=== PATIENT | female | born 1950 | race Caucasian/White ===

== ENCOUNTER → 2016-09-22 | Outpatient (CLI) | payer MEDICARE ==
[~2016-09-22] MED LIST: CALC-72 PO; CELE100C PO; CHOL2000 PO; CYCL10TA50 PO; ESTR1TAB37; LISI5TAB7 PO; MULT-34 PO; OMEG1CAP12 PO; SIMV10TA3 PO; UNKNOWN THYROID MED
== END | disposition home or self-care (01) ==
LOC: CFH 09:41
PROVIDERS: ATTEND Physician Assistant
DX: Z12.31 Encounter for screening mammogram for malignant neoplasm of breast (principal); M85.80 Other specified disorders of bone density and structure, unspecified site; E04.2 Nontoxic multinodular goiter; M81.0 Age-related osteoporosis without current pathological fracture
CPT/HCPCS: 76536; 77080; G0202

== ENCOUNTER → 2016-10-12 | Outpatient (CLI) | payer MEDICARE ==
[2016-10-12 08:56] LABS: ASPARTATE AMINO TRANSFERASE 12 U/L (15-37); BLOOD UREA NITROGEN 12 mg/dL (7-18)
== END | disposition home or self-care (01) ==
LOC: STAR 07:28
PROVIDERS: ATTEND Surgery
DX: Z01.818 Encounter for other preprocedural examination (principal)
CPT/HCPCS: 36415; 71020; 80053; 93005

== ENCOUNTER 2016-10-26 06:57 | Inpatient (IN) | payer MEDICARE ==
[2016-10-14 14:36] VITALS: BP 158/92
[~2016-10-26] VITALS: Ht 165.1 cm; Wt 68.9 kg
[~2016-10-26 06:57] MED LIST changes: +ASPI-496 PO; +ATOR10TA9 PO; +BUPIVACAINE/PF-EPI 0.5% 1:200K ONE; +LACT1CAP40 PO; +MAGN500C PO; +METH5TAB6 PO; +MULT-230 PO; -OMEG1CAP12 PO; +OMEG1CAP23 PO; +OMEP-110 PO; +TURM1CAP PO
[2016-10-26] MEDS ORDERED: LACTATED RINGERS 1,000 ML IV SCH (07:24)
[2016-10-26] MEDS ORDERED: LISI-170 PO (07:30)
[2016-10-26] MEDS ORDERED: LIDOCAINE 1%, 2ML SQ PRN (07:30)
[2016-10-26] MEDS ORDERED: FENTANYL PF 250 MCG/5ML ONE (09:25)
[2016-10-26] MEDS ORDERED: MIDAZOLAM 1 MG/ML, 2ML ONE (09:26)
[2016-10-26] MEDS ORDERED: DEXAMETHASONE 4 MG/ML, 1ML ONE (09:40)
[2016-10-26] MEDS ORDERED: LIDOCAINE 2%, 20ML ONE (09:40)
[2016-10-26] MEDS ORDERED: PHENYLEPHRINE 10 MG/ML ONE (09:40)
[2016-10-26] MEDS ORDERED: SUCCINYLCHOLINE 20 MG/ML, 10ML ONE (09:40)
[2016-10-26] MEDS ORDERED: CEFAZOLIN 1,000 MG ONE (09:40)
[2016-10-26] MEDS ORDERED: METOCLOPRAMIDE 5 MG/ML, 2ML ONE (09:40)
[2016-10-26] MEDS ORDERED: PROPOFOL 10 MG/ML, 20ML ONE (09:40)
[2016-10-26] MEDS ORDERED: ONDANSETRON 2MG/ML, 2ML ONE (09:40)
[2016-10-26] MEDS ORDERED: EPHEDRINE 50 MG/ML, 1ML IVPush PRN (10:00)
[2016-10-26] MEDS ORDERED: hydrALAzine 20 MG/ML, 1ML IV PRN ×2 (10:00→13:00)
[2016-10-26] MEDS ORDERED: OXYcodone 5 MG/5 ML ORAL.SOL UDC PO PRN (10:00)
[2016-10-26] MEDS ORDERED: HYDROmorphone 1 MG/ML, 1ML IV PRN (10:00)
[2016-10-26] MEDS ORDERED: ONDANSETRON 2MG/ML, 2ML IVPush PRN (10:00)
[2016-10-26] MEDS ORDERED: MEPERIDINE/PF 25MG/0.5ML IVPush PRN (10:00)
[2016-10-26] MEDS ORDERED: MIDAZOLAM 1 MG/ML, 2ML IV PRN (10:00)
[2016-10-26] MEDS ORDERED: METOCLOPRAMIDE 5 MG/ML, 2ML IV PRN (10:00)
[2016-10-26] MEDS ORDERED: LABETALOL 5MG/ML, 20ML IV PRN (10:00)
[2016-10-26] MEDS ORDERED: ALBUTEROL SULFATE 2.5 MG/3 ML NPPB PRN (10:00)
[2016-10-26] MEDS ORDERED: OXYcodone 5 MG/5 ML ORAL.SOL UDC ONE (11:17)
[2016-10-26 11:30] VITALS: BP 161/92
[2016-10-26] MEDS ORDERED: FENTANYL PF 100 MCG/2ML ONE (11:36)
[2016-10-26] MEDS: FENTANYL PF 100 MCG/2ML IV PRN ×2 (11:40→11:49)
[2016-10-26] MEDS ORDERED: ACETAMINOPHEN 650 MG SUPP PR PRN (13:00)
[2016-10-26 13:06] VITALS: BP 164/89
[2016-10-26] MEDS: D5%-0.45NACL+KCL 20MEQ 1,000 ML IV SCH ×2 (14:32→23:00)
[2016-10-26] MEDS ORDERED: CYCLOBENZAPRINE 10 MG TABLET PO PRN (15:30)
[2016-10-26] MEDS: KETOROLAC 30 MG/1 ML IV PRN ×2 (16:13→22:17)
[2016-10-26] MEDS: CALCIUM/VITAMIN D3 250-125 TABLET PO SCH ×2 (16:13→21:23)
[2016-10-26 19:30] VITALS: BP 127/65
[2016-10-26] MEDS: ACETAMINOPHEN 325 MG TABLET PO PRN (21:22)
[2016-10-27 00:02] VITALS: BP 138/68
[2016-10-27 03:42] VITALS: BP 135/68
[2016-10-27] MEDS: ACETAMINOPHEN 325 MG TABLET PO PRN (03:54)
[2016-10-27] MEDS: KETOROLAC 30 MG/1 ML IV PRN (04:57)
[2016-10-27] MEDS ORDERED: LEVOTHYROXINE 100 MCG TABLET PO SCH (06:00)
[2016-10-27 07:25] VITALS: BP 114/57
[2016-10-27] MEDS ORDERED: MULTIVITAMIN 1 TABLET PO SCH (09:00)
[2016-10-27] MEDS ORDERED: MAGNESIUM OXIDE 400 MG TABLET PO SCH (09:00)
[2016-10-27] MEDS ORDERED: CHOLECALCIFEROL 1,000 UNIT TABLET PO SCH (09:00)
[2016-10-27] MEDS ORDERED: LISINOPRIL 20 MG TABLET PO SCH (09:00)
[2016-10-27] MEDS: CALCIUM/VITAMIN D3 250-125 TABLET PO SCH (09:02)
[2016-10-27] MEDS ORDERED: CALC0.5C PO (09:12)
[2016-10-27] MEDS ORDERED: HYDR-3240 PO (09:13)
[2016-10-27] MEDS ORDERED: LEVO112T4 PO (09:14)
[2016-10-27] MEDS ORDERED: CALC-118 PO (09:15)
[2016-10-28] MEDS ORDERED: ATORVASTATIN 10 MG TABLET PO SCH (09:00)
== END 2016-10-27 10:13 | disposition home or self-care (01) | DRG 627 ==
LOC: OUT 06:57 → 4NOR 12:15 → OUT 12:25 → 4NOR 12:26 → DCLOUNGE 10-27 09:45
PROVIDERS: ADMIT Surgery; ATTEND Surgery
PROC: 0GTR0ZZ Resection of Parathyroid Gland, Open Approach (ICD-10-PCS; 2016-10-26)
PROC: 0GTM0ZZ Resection of Left Superior Parathyroid Gland, Open Approach (ICD-10-PCS; 2016-10-26)
PROC: 4A1004G Monitoring of Central Nervous Electrical Activity, Intraoperative, Open Approach (ICD-10-PCS; 2016-10-26)
PROC: 0GTK0ZZ Resection of Thyroid Gland, Open Approach (ICD-10-PCS; principal; 2016-10-26 09:30)
DX: E04.2 Nontoxic multinodular goiter (principal); I10 Essential (primary) hypertension; E78.00 Pure hypercholesterolemia, unspecified; M85.80 Other specified disorders of bone density and structure, unspecified site; J44.9 Chronic obstructive pulmonary disease, unspecified; G89.29 Other chronic pain; M54.9 Dorsalgia, unspecified; Z87.891 Personal history of nicotine dependence; Z85.51 Personal history of malignant neoplasm of bladder
CPT/HCPCS: 36415; 82310; 83970; 88305; 88307; 88331; J0690; J1100; J1885; J2250; J2405; J2704; J3010; J3490; C1760; J0330; J2370; J2765; J3480; J7120

== ENCOUNTER 2017-01-13 09:55 | Inpatient (IN) | payer MEDICARE ==
[~2017-01-13] VITALS: Ht 165.1 cm; Wt 69.0 kg
[~2017-01-13 09:55] MED LIST changes: -BUPIVACAINE/PF-EPI 0.5% 1:200K ONE; +CALC-118 PO; +CALC-534 PO; -CALC-72 PO; +CALC0.5C PO; +HYDR-3240 PO; +LEVO112T4 PO; +LISI-170 PO; -MAGN500C PO; +MAGN500C9 PO
[2017-01-13 10:53] LABS: HEMATOCRIT 39.6 % (34.6-47.8); HEMOGLOBIN 13.5 g/dL (11.7-16.4); WHITE BLOOD COUNT 9.1 x10^3/uL (3.4-10)
[2017-01-13] MEDS ORDERED: SODIUM CHLORIDE 0.9%, 500ML IVBOLUS ONE (11:00)
[2017-01-13 11:06] LABS: ASPARTATE AMINO TRANSFERASE 12 U/L (15-37); BLOOD UREA NITROGEN 48 mg/dL (7-18)
[2017-01-13 11:13] LABS: IS PT STATUS REG ER OR PRE ER? YES
[2017-01-13] MEDS ORDERED: SODIUM CHLORIDE 0.9% 1,000ML IVBOLUS ONE (11:30)
[2017-01-13] MEDS ORDERED: SODIUM CHLORIDE 0.9% 1,000 ML IV ONE (11:47)
[2017-01-13] MEDS ORDERED: SODIUM CHLORIDE FLUSH 10ML SYR IVF PRN (12:00)
[2017-01-13] MEDS ORDERED: HYDROcodone/APAP 5/325 TABLET PO PRN (13:30)
[2017-01-13 13:54] VITALS: BP 168/67
[2017-01-13] MEDS ORDERED: ENOXAPARIN 40 MG/0.4 ML SQ SCH (15:00)
[2017-01-13] MEDS ORDERED: PLEASE ENTER HEIGHT AND WEIGHT MC SCH (15:00)
[2017-01-13] MEDS ORDERED: SODIUM CHLORIDE 0.9% 1,000 ML IV SCH (15:30)
[2017-01-13] MEDS: HEPARIN 5,000 UNITS/ML, 1ML SQ SCH (17:48)
[2017-01-13 18:50] VITALS: BP 152/76
[2017-01-13] MEDS: SODIUM CHLORIDE 0.9% 1,000 ML IV SCH (20:24)
[2017-01-14 01:16] VITALS: BP 144/72
[2017-01-14] MEDS: SODIUM CHLORIDE 0.9% 1,000 ML IV SCH ×2 (03:11→08:20)
[2017-01-14] MEDS: LEVOTHYROXINE 112 MCG TABLET PO SCH (05:26)
[2017-01-14] MEDS: HEPARIN 5,000 UNITS/ML, 1ML SQ SCH ×3 (05:27→21:23)
[2017-01-14 06:33] LABS: HEMOGLOBIN 11.1 g/dL (11.7-16.4); WHITE BLOOD COUNT 7.3 x10^3/uL (3.4-10)
[2017-01-14 06:51] LABS: ASPARTATE AMINO TRANSFERASE 11 U/L (15-37); BLOOD UREA NITROGEN 47 mg/dL (7-18)
[2017-01-14 08:03] VITALS: BP 102/59
[2017-01-14] MEDS ORDERED: ACETAMINOPHEN 325 MG TABLET ONE (08:38)
[2017-01-14] MEDS: ACETAMINOPHEN 325 MG TABLET PO PRN ×2 (08:45→21:29)
[2017-01-14] MEDS: OMEPRAZOLE 20 MG CAPSULE.DR PO SCH (08:46)
[2017-01-14] MEDS ORDERED: METOPROLOL 1 MG/ML, 5ML IVPush PRN (11:30)
[2017-01-14] MEDS: SODIUM CHLORIDE 0.45% 1,000 ML IV SCH ×2 (13:30→23:13)
[2017-01-14 13:46] VITALS: BP 181/78
[2017-01-14 15:51] VITALS: BP 152/80
[2017-01-14] MEDS ORDERED: DOCUSATE 100 MG CAPSULE PO PRN (18:00)
[2017-01-14 19:56] VITALS: BP 195/70
[2017-01-15 00:42] VITALS: BP 160/75
[2017-01-15] MEDS: SODIUM CHLORIDE 0.45% 1,000 ML IV SCH (06:15)
[2017-01-15] MEDS: LEVOTHYROXINE 112 MCG TABLET PO SCH (06:15)
[2017-01-15] MEDS: HEPARIN 5,000 UNITS/ML, 1ML SQ SCH ×3 (06:15→21:55)
[2017-01-15 07:34] LABS: BLOOD UREA NITROGEN 38 mg/dL (7-18)
[2017-01-15 08:00] VITALS: BP 145/77
[2017-01-15] MEDS: OMEPRAZOLE 20 MG CAPSULE.DR PO SCH (08:46)
[2017-01-15] MEDS ORDERED: ATORVASTATIN 10 MG TABLET PO SCH ×2 (09:00→21:00)
[2017-01-15 13:46] VITALS: BP 176/91
[2017-01-15 20:08] VITALS: BP 195/80
[2017-01-15 20:45] VITALS: BP 177/82
[2017-01-15] MEDS: ACETAMINOPHEN 325 MG TABLET PO PRN (21:56)
[2017-01-15] MEDS ORDERED: LABETALOL 5MG/ML, 20ML IVPush PRN (23:30)
[2017-01-16 00:34] VITALS: BP 152/72
[2017-01-16 05:46] LABS: BLOOD UREA NITROGEN 35 mg/dL (7-18)
[2017-01-16] MEDS: LEVOTHYROXINE 112 MCG TABLET PO SCH (05:55)
[2017-01-16] MEDS: HEPARIN 5,000 UNITS/ML, 1ML SQ SCH (05:55)
[2017-01-16 07:39] VITALS: BP 152/74
[2017-01-16] MEDS: OMEPRAZOLE 20 MG CAPSULE.DR PO SCH (09:16)
[2017-01-16 11:00] VITALS: BP 145/86
== END 2017-01-16 12:18 | disposition home or self-care (01) | DRG 304 ==
LOC: ED 11:46 → EDIP 11:47 → ED 11:49 → 4WST 13:32
PROVIDERS: ADMIT Internal Medicine; ATTEND Internal Medicine
DX: I13.10 Hypertensive heart and chronic kidney disease without heart failure, with stage 1 through stage 4 chronic kidney disease, or unspecified chronic kidney disease (principal); N17.0 Acute kidney failure with tubular necrosis; E44.0 Moderate protein-calorie malnutrition; J98.11 Atelectasis; E83.52 Hypercalcemia; D64.9 Anemia, unspecified; E78.5 Hyperlipidemia, unspecified; M19.90 Unspecified osteoarthritis, unspecified site; E04.2 Nontoxic multinodular goiter; E89.0 Postprocedural hypothyroidism; N18.9 Chronic kidney disease, unspecified; I34.1 Nonrheumatic mitral (valve) prolapse; Z79.899 Other long term (current) drug therapy; Z80.9 Family history of malignant neoplasm, unspecified; Z85.51 Personal history of malignant neoplasm of bladder; Z87.891 Personal history of nicotine dependence; Z90.710 Acquired absence of both cervix and uterus; Z79.82 Long term (current) use of aspirin
CPT/HCPCS: 36415; 71010; 80048; 80053; 81001; 82330; 83735; 84100; 84484; 85025; 87086; 93005; 96360; 96361; J1644; J7030; J7040

== ENCOUNTER 2017-09-02 20:07 | Emergency (ER) | payer MEDICARE ==
[~2017-09-02] VITALS: Ht 165.1 cm; Wt 68.2 kg
[~2017-09-02 20:07] MED LIST changes: -CALC0.5C PO; +CALC0.5C9 PO
[2017-09-02 20:44] LABS: MICROSCOPIC AUTO
[2017-09-02 20:46] LABS: CULTURE INDICATED? YES
[2017-09-02] MEDS ORDERED: AMLO5TAB2 PO (20:46)
[2017-09-02] MEDS ORDERED: CALC0.5C9 PO (20:46)
[2017-09-02] MEDS ORDERED: POTA99TA24 PO (20:46)
[2017-09-02] MEDS ORDERED: OMEP-110 PO (20:46)
[2017-09-02 20:55] LABS: BASOPHILS % (AUTO) 1 % (0-1); EOSINOPHILS # (AUTO) 0.16 x10^3/uL (0-0.4); EOSINOPHILS % (AUTO) 2 % (1-7); LYMPHOCYTES # (AUTO) 2.42 x10^3/uL (1-3.4); LYMPHOCYTES % (AUTO) 23 % (22-44); MD NO; MEAN CORPUSCULAR HEMOGLOBIN 31.6 pg (27.0-34.8); MEAN CORPUSCULAR HGB CONC 33.7 g/dL (32.4-35.8); MEAN CORPUSCULAR VOLUME 93.9 fL (80-100); MEAN PLATELET VOLUME 9.2 fL (7.4-10.4); MONOCYTES # (AUTO) 0.65 x10^3/uL (0.2-0.8); MONOCYTES % (AUTO) 6 % (2-9); NEUTROPHILS # (AUTO) 7.03 x10^3/uL (1.8-6.8); NEUTROPHILS % (AUTO) 68 % (42-75); PLATELET COUNT 287 x10^3/uL (130-400); RED BLOOD COUNT 4.11 x10^6/uL (3.82-5.3)
[2017-09-02 21:07] LABS: ALBUMIN 3.7 g/dL (3.4-5.0); ANION GAP 9 mmol/L (5-15); CALCIUM 10.9 mg/dL (8.5-10.1); CHLORIDE 106 mmol/L (98-107); CREATININE 2.24 mg/dL (0.55-1.02)
[2017-09-02] MEDS ORDERED: SODIUM CHLORIDE 0.9% 1,000ML IVBOLUS ONE (21:30)
[2017-09-02] MEDS ORDERED: SODIUM CHLORIDE FLUSH 10ML SYR IVF ONE (21:30)
[2017-09-02 22:06] VITALS: BP 143/80
== END 2017-09-02 22:26 | disposition home or self-care (01) ==
LOC: ED 20:58
DX: I12.9 Hypertensive chronic kidney disease with stage 1 through stage 4 chronic kidney disease, or unspecified chronic kidney disease (principal); N18.2 Chronic kidney disease, stage 2 (mild); E83.52 Hypercalcemia; I34.1 Nonrheumatic mitral (valve) prolapse; Z79.899 Other long term (current) drug therapy
CPT/HCPCS: 36415; 80048; 81001; 82040; 85025; 87086; 93005; 96360; 99285; J7030

== ENCOUNTER → 2017-12-07 | Outpatient (CLI) | payer MEDICARE ==
[~2017-12-07] MED LIST changes: +AMLO5TAB2 PO; +POTA99TA24 PO
== END | disposition home or self-care (01) ==
LOC: CFH 08:43
PROVIDERS: ATTEND Nurse Practitioner Primary Care
DX: Z12.31 Encounter for screening mammogram for malignant neoplasm of breast (principal); E78.2 Mixed hyperlipidemia; E88.81 Metabolic syndrome and other insulin resistance; E03.9 Hypothyroidism, unspecified; E55.9 Vitamin D deficiency, unspecified; I10 Essential (primary) hypertension; J44.9 Chronic obstructive pulmonary disease, unspecified; Z79.899 Other long term (current) drug therapy
CPT/HCPCS: 77063; 77067

== ENCOUNTER → 2017-12-16 | Outpatient (CLI) | payer MEDICARE | END | disposition home or self-care (01) | LOC: CFH 08:04 | PROVIDERS: ATTEND Nurse Practitioner Primary Care | DX: M81.0 Age-related osteoporosis without current pathological fracture (principal); I10 Essential (primary) hypertension; E78.2 Mixed hyperlipidemia; E03.9 Hypothyroidism, unspecified; J44.9 Chronic obstructive pulmonary disease, unspecified; Z79.899 Other long term (current) drug therapy; Z88.6 Allergy status to analgesic agent | CPT/HCPCS: 77080 ==

== ENCOUNTER → 2020-08-23 | Outpatient (CLI) | payer MEDICARE ==
[~2020-08-23] MED LIST changes: +AMLO-150 PO; -AMLO5TAB2 PO; +HYDR-2214 PO; -HYDR-3240 PO; -MULT-230 PO; +MULT-806 PO; +SIMV10TA18 PO; -SIMV10TA3 PO
== END | disposition home or self-care (01) ==
LOC: CVU 09:29
PROVIDERS: ATTEND Nurse Practitioner Primary Care
DX: I08.8 Other rheumatic multiple valve diseases (principal); E78.2 Mixed hyperlipidemia; I11.9 Hypertensive heart disease without heart failure; Z87.891 Personal history of nicotine dependence; Z79.899 Other long term (current) drug therapy
CPT/HCPCS: 93306; 93356